=== PATIENT | male | born 1950 | race African-American/Black ===

== ENCOUNTER 2019-10-16 15:45 | Emergency (ER) | payer MEDICARE, OTHER ==
[~2019-10-16] VITALS: Ht 190.5 cm; Wt 66.7 kg
--- NOTE | 2019-10-16 15:45 | NUR ---
PT BIB RA 83 FROM HOME,C/O GENERALIZED WEAKNESS, PT IS AAOX4, NOT IN RESPIRATORY DISTRESS, HOOKED TO MONITOR, KEPT RESTED AND COMFORTABLE, WILL CONTINUE TO MONITOR.
--- NOTE | 2019-10-16 15:55 | NUR ---
IV LINE ESTABLISHED, BLOOD DRAWN AND SENT TO LAB.
--- NOTE | 2019-10-16 15:58 | NUR ---
BHARATH CABAN TUBER MACHINE OPERATOR AT BEDSIDE FOR EVAL.
[2019-10-16] MEDS ORDERED: IV NS 0.9% 1,000 ML BAG IV ONE ×2 (16:00→17:00)
--- NOTE | 2019-10-16 16:05 | NUR ---
URINAL GIVEN BUT UNABLE TO PROVIDE URINE SPECIMEN THIS TIME.
--- NOTE | 2019-10-16 16:06 | NUR ---
SEWING ROOM SUPERVISOR AT BEDSIDE FOR XRAY.
[2019-10-16 16:10] LABS: BASOPHILS % (AUTO) 0.4 % (0.0-2.0); EOSINOPHILS % (AUTO) 0.1 % (0.0-6.0); HEMATOCRIT 29 % (39-51); HEMOGLOBIN 9.7 g/dL (13.5-17.5); LYMPHOCYTES # (AUTO) 0.8 /CMM (0.8-4.8); LYMPHOCYTES % (AUTO) 7.6 % (20.0-44.0); MEAN CORPUSCULAR HGB CONC 33 g/dl (31.0-36.0); MEAN CORPUSCULAR VOLUME 102 fL (80-96); MONOCYTES # (AUTO) 0.3 /CMM (0.1-1.30); MONOCYTES % (AUTO) 2.7 % (2.0-12.0); NEUTROPHILS # (AUTO) 9.6 /CMM (1.8-8.9); NEUTROPHILS % (AUTO) 89.2 % (43.0-81.0); PLATELET COUNT (AUTO) 450 /CMM (150-450); RED BLOOD CELL COUNT(AUTO) 2.84 MIL/uL (4.5-6.0); WHITE BLOOD COUNT (AUTO) 10.8 K/uL (4.3-11.0)
[2019-10-16 16:20] LABS: CALCIUM, SERUM 8.8 mg/dL (8.5-10.1); CARBON DIOXIDE 37 mmol/L (21-32); CHLORIDE 96 mmol/L (98-107); CREATININE 1.7 mg/dL (0.6-1.3); GLUCOSE 142 mg/dL (74-106); POTASSIUM 3.2 mmol/L (3.5-5.1); SODIUM SERUM 140 mmol/L (136-145); UREA NITROGEN, BLOOD 32 mg/dL (7-18)
[2019-10-16 16:26] LABS: BILIRUBIN,TOTAL 2.9 mg/dL (0.2-1.0)
[2019-10-16 16:27] LABS: ALANINE AMINOTRANSFERASE 44 U/L (12-78); ALBUMIN 2.4 g/dL (3.4-5.0); ALKALINE PHOSPHATASE 115 U/L (46-116); ASPARTATE AMINOTRANSFERASE 177 U/L (15-37); BILIRUBIN,DIRECT 2.2 mg/dL (0.0-0.2); TOTAL PROTEIN, SERUM 7.2 g/dL (6.4-8.2)
[2019-10-16 17:10] LABS: APPEARANCE,URINE Cloudy (CLEAR); BILIRUBIN,URINE MODERATE (NEGATIVE); BLOOD, URINE Large Ery/uL (NEGATIVE); COLOR,URINE Yellow (YELLOW); KETONES,URINE Trace (NEGATIVE); LEUKOCYTE ESTERASE ,URINE Small (NEGATIVE); NITRITE, URINE Negative (NEGATIVE); PH,URINE 5.5 (5.0-8.0); PROTEIN,URINE 100 mg/dl (NEGATIVE); UGLUCOSE Negative (NEGATIVE)
--- NOTE | 2019-10-16 17:20 | NUR ---
MOVE SHEET TURNED IN TO ADMITTING
[2019-10-16 17:24] LABS: BACTERIA,URINE 2+ /HPF (None Seen); RBC,URINE 21-50 /HPF (0-2); SQUAMOUS EPITHELIAL CELL,UR Few /HPF (None Seen)
[2019-10-16] MEDS ORDERED: PIPERACILLIN /TAZOBACTAM 3.375 G in IV D5W 50 ML IV ONE (17:30)
--- NOTE | 2019-10-16 19:02 | NUR ---
MANFRED CASTRO [phone]
--- NOTE | 2019-10-16 19:14 | NUR ---
REPORT RECEIVED FROM JAY RN FOR INO
--- NOTE | 2019-10-16 19:16 | NUR ---
REPORT GIVEN TO CRISELDA TRAN FOR INO.
[2019-10-16 19:48] VITALS: BP 118/82
--- NOTE | 2019-10-16 20:07 | NUR ---
CALL FROM [facility]. PT ACCEPTED TO [facility] BED [id number] BY DR HENDRICKS. # FOR REPORT [phone]. [facility] ETA
--- NOTE | 2019-10-16 20:20 | NUR ---
REPORT GIVEN TO CRISELDA TATUM [facility]
--- NOTE | 2019-10-16 20:30 | NUR ---
PT REFUSED TO BE CHANGED
--- NOTE | 2019-10-16 20:55 | NUR ---
REPORT GIVEN TO [facility]. PT TRANSFERRED TO [facility] IN STABLE CONDITION
== END 2019-10-16 21:08 | disposition short-term general hospital (02) ==
LOC: ER 15:47
DX: A41.9 Sepsis, unspecified organism (principal); N39.0 Urinary tract infection, site not specified; Z98.890 Other specified postprocedural states; Z60.2 Problems related to living alone; Z85.118 Personal history of other malignant neoplasm of bronchus and lung
CPT/HCPCS: 36415; 71045; 80048; 80076; 81001; 83605 ×2; 84145; 84484; 85025; 85730; 87040 ×2; 87077 ×2; 87081; 87086; 87186 ×2; 87804 ×2; 93005; 96374; 99291; J2543; J7030 ×2; J7060; 81000-TC

== ENCOUNTER 2021-12-21 11:52 | Inpatient (IN) | payer OTHER ==
[~2021-12-21] VITALS: Ht 190.5 cm; Wt 65.8 kg
--- NOTE | 2021-12-21 12:06 | NUR ---
[id number], from home,found altered while sink faucet on, BS 40, D10 250ml infused. The patient is alert and oriented x1. In room air and denies SOB. Respiration regular and unlabored. Attached to the monitor. Warm blanket provided for comfort. Will continue to monitor the patient.
[2021-12-21] MEDS ORDERED: IV NS 0.9% 1,000 ML BAG IV ONE (12:30)
--- NOTE | 2021-12-21 12:31 | NUR ---
Per Dr. Rai 16 FR dickson catheter inserted per sterile protocal. Immediate output 30 ML of urine.
--- NOTE | 2021-12-21 12:32 | NUR ---
URINE COLLECTED AND SENT TO THE LAB
[2021-12-21 12:38] LABS: EOSINOPHILS % (AUTO) 0.2 % (0.0-6.0); HEMOGLOBIN 10.5 g/dL (13.5-17.5); LYMPHOCYTES # (AUTO) 0.8 K/uL (0.8-4.8); MONOCYTES # (AUTO) 0.3 K/uL (0.1-1.30); WHITE BLOOD COUNT (AUTO) 5.9 K/uL (4.3-11.0)
--- NOTE | 2021-12-21 12:44 | NUR ---
THE PATIENT IS TAKEN TO CT VIA RNEY
[2021-12-21 12:45] LABS: BASOPHILS % (AUTO) 0.4 % (0.0-2.0); HEMATOCRIT 32 % (39-51); LYMPHOCYTES % (AUTO) 13.7 % (20.0-44.0); MEAN CORPUSCULAR HGB CONC 33 g/dl (31.0-36.0); MEAN CORPUSCULAR VOLUME 113 fL (80-96); MONOCYTES % (AUTO) 5.1 % (2.0-12.0); NEUTROPHILS # (AUTO) 4.7 K/uL (1.8-8.9); NEUTROPHILS % (AUTO) 80.6 % (43.0-81.0); PLATELET COUNT (AUTO) 223 K/uL (150-450); RED BLOOD CELL COUNT(AUTO) 2.85 MIL/uL (4.5-6.0)
[2021-12-21 12:48] LABS: BILIRUBIN,URINE LARGE (NEGATIVE); COLOR,URINE DARK YELLOW (YELLOW); LEUKOCYTE ESTERASE ,URINE MODERATE (NEGATIVE); NITRITE, URINE POSITIVE (NEGATIVE); PROTEIN,URINE 100 mg/dl (NEGATIVE); UGLUCOSE NEGATIVE (NEGATIVE); UROBILINOGEN,URINE >=8.0 EU/dL (0.2)
[2021-12-21] MEDS ORDERED: PIPERACILLIN /TAZOBACTAM 3.375 G in IV D5W 50 ML IV ONE (13:00)
[2021-12-21] MEDS ORDERED: VANCOMYCIN HCL 1 GM in IV D5W 260 ML IV ONE (13:00)
--- NOTE | 2021-12-21 13:00 | NUR ---
WAITING FOR PHARMACY TO DELIVER ORDERED ANTIBIOTICS. FOLLOW UP CALL TO PHARMACY IS MADE.
--- NOTE | 2021-12-21 13:00 | NUR ---
THE PATIENT IS BACK FROM [place] VIA [facility]
[2021-12-21 13:13] LABS: BACTERIA,URINE Many /HPF (None Seen); SQUAMOUS EPITHELIAL CELL,UR None Seen /HPF (None Seen)
--- NOTE | 2021-12-21 13:23 | NUR ---
CALLED [facility] [phone] WILL FAX CLINICALS AND WILL CALL US BACK.
--- NOTE | 2021-12-21 13:31 | NUR ---
COVID ANTIGEN SWAB DONE AND SENT TO THE LAB
[2021-12-21] MEDS ORDERED: PHOS250T5 PO (13:37)
[2021-12-21] MEDS ORDERED: ONDA4TAB11 SL (13:37)
[2021-12-21] MEDS ORDERED: BRIM5DRO3 EACHEYE (13:37)
[2021-12-21] MEDS ORDERED: MULT400T12 PO (13:37)
[2021-12-21] MEDS ORDERED: CHOL100043 PO (13:37)
[2021-12-21] MEDS ORDERED: ACAM333T8 PO (13:37)
[2021-12-21] MEDS ORDERED: FOLI0.4T6 PO (13:37)
[2021-12-21] MEDS ORDERED: MIDO5TAB4 PO (13:37)
[2021-12-21] MEDS ORDERED: POTA20TA10 PO (13:37)
[2021-12-21] MEDS ORDERED: DORZ10DR13 EACHEYE (13:37)
[2021-12-21] MEDS ORDERED: LACT10SO3 PO (13:37)
[2021-12-21] MEDS ORDERED: FERR325T23 PO (13:37)
[2021-12-21] MEDS ORDERED: ALLO100T PO (13:37)
[2021-12-21] MEDS ORDERED: MAGN400T26 PO (13:37)
[2021-12-21] MEDS ORDERED: LATA2.5D15 EACHEYE (13:37)
[2021-12-21] MEDS ORDERED: THIA100T88 PO (13:37)
[2021-12-21] MEDS ORDERED: PANT40TA49 PO (13:37)
[2021-12-21] MEDS ORDERED: TAMS-12 PO (13:37)
[2021-12-21] MEDS ORDERED: QUET25TA PO (13:37)
--- NOTE | 2021-12-21 13:40 | NUR ---
DR. BENÍTEZ FROM [facility] SPEAKING WITH DR. RAUSCH.
[2021-12-21 13:52] LABS: ALANINE AMINOTRANSFERASE 32 U/L (12-78); ALKALINE PHOSPHATASE 94 U/L (46-116); ASPARTATE AMINOTRANSFERASE 158 U/L (15-37); BILIRUBIN,DIRECT 5.6 mg/dL (0.0-0.2); CALCIUM, SERUM 7.2 mg/dL (8.5-10.1); CARBON DIOXIDE 21 mmol/L (21-32); CHLORIDE 90 mmol/L (98-107); CREATININE 2.3 mg/dL (0.6-1.3); GLUCOSE 118 mg/dL (74-106); TOTAL PROTEIN, SERUM 6.9 g/dL (6.4-8.2); UREA NITROGEN, BLOOD 7 mg/dL (7-18)
[2021-12-21] MEDS ORDERED: IV NS 0.9% 500 ML BAG IV ONE (14:00)
[2021-12-21 14:17] LABS: POTASSIUM 1.6 mmol/L (3.5-5.1)
--- NOTE | 2021-12-21 14:20 | NUR ---
MOVE SHEET SUBMITTED AND CALLED FOR [facility] BED.
[2021-12-21 14:21] LABS: ACETAMINOPHEN < 10 ug/ml (10-30)
[2021-12-21] MEDS ORDERED: IV PREMIX D5 1/2NS + KCL 1,000 ML IV ONE ×2 (14:24→14:30)
[2021-12-21] MEDS ORDERED: POTASSIUM CHLORIDE 20 MEQ TAB.PRT.SR PO ONE ×2 (14:24→14:30)
[2021-12-21 14:26] LABS: ALBUMIN 1.8 g/dL (3.4-5.0); ALCOHOL, BLOOD < 3 mg/dL (0-0)
[2021-12-21 14:27] LABS: SODIUM SERUM 139 mmol/L (136-145)
--- NOTE | 2021-12-21 15:09 | NUR ---
[facility] CALLED ORGAN RECOVERY COORDINATOR PAGED.
[2021-12-21] MEDS ORDERED: LACTULOSE 10 G/15 ML UDC (PYXIS) NG ONE (16:30)
[2021-12-21] MEDS ORDERED: LACTULOSE 10 G/15 ML UDC (PYXIS) ONE (16:35)
--- NOTE | 2021-12-21 16:57 | NUR ---
INSERTED NG FR 16 LEFT NOSTILE AT 55.5 INCHES. PLACEMENT CONFIRMED BY 2 RN (CRISELDA OLMOS AND CRISELDA DESIR).
[2021-12-21] MEDS ORDERED: CEFTRIAXONE 1 G in IV D5W 50 ML IV SCH (18:00)
[2021-12-21] MEDS ORDERED: Z GUARD REMEDY 4 OZ OINT TP PRN (18:00)
[2021-12-21] MEDS ORDERED: ACETAMINOPHEN 325 MG TABLET PO PRN (18:00)
[2021-12-21] MEDS ORDERED: MAGNESIUM HYDROXIDE 30 ML UDC PO PRN (18:00)
[2021-12-21] MEDS ORDERED: MAG HYDROX/AL HYDROX/SIMETH 30 ML UDC PO PRN (18:00)
[2021-12-21] MEDS ORDERED: DEXTROSE 50%-WATER 50 ML DISP.SYRIN IV PRN (18:00)
[2021-12-21] MEDS ORDERED: ONDANSETRON HCL/PF 4 MG/2 ML VIAL IVP PRN (18:00)
[2021-12-21] MEDS ORDERED: LACTULOSE 10 G/15 ML UDC (PYXIS) PO SCH (18:00)
[2021-12-21] MEDS ORDERED: POTASSIUM CL. PREMIX PERIPHER. 50 ML IV SCH (18:00)
--- NOTE | 2021-12-21 18:05 | NUR ---
BED ASSIGNMENT 101 PER NURSING SUP.
--- NOTE | 2021-12-21 19:10 | NUR ---
STEP DOWN NURSE NOTE ADMIT 70 YEAR OLD MALE TO [facility] UNIT AT ROOM 101 ON [facility] MONITORING ADMITTING DIAGNOSIS IS ACUTE HEPATIC ENCEPHALOPATHY,HYPOKALEMIA 1.6 ALERT ORIENTED X1 VERBALLY RESPONSIVE ON ROOM AIR O2:94% IV SITE IS ON LEFT HAND 20G INTACT PATENT,BURRIS CATHETER IN PLACE URINE DARK YELLOW CLOUDY DRAINING BY GRAVITY SAFETY MEASURE IMPLEMENT BED IN LOW POSITION AND LOCKED BED ALARM IS GAS APPLIANCE INSTALLER LIGHT WITHIN REACH CONTINUE TO MONITOR.
--- NOTE | 2021-12-21 19:11 | NUR ---
THE PATIENT IS TRANSFERED TO ROOM 101 IN STABLE CONDITION AND PER ACLS POLICY.
[2021-12-21 19:22] LABS: CALCIUM, SERUM 6.7 mg/dL (8.5-10.1); CREATININE 2.3 mg/dL (0.6-1.3)
[2021-12-21 19:31] LABS: POTASSIUM 1.6 mmol/L (3.5-5.1)
[2021-12-21] MEDS: POTASSIUM CL. PREMIX PERIPHER. 50 ML IV SCH ×4 (19:34→22:56)
[2021-12-21] MEDS: IV D5/0.45 NACL 1,000 ML IV PRN (19:37)
[2021-12-21 20:00] VITALS: BP 95/54
[2021-12-21] MEDS: CEFTRIAXONE 1 G in IV D5W 50 ML IV SCH (20:18)
[2021-12-21] MEDS: LATANOPROST EYE DROP 0.005% 2.5 ML BOTTLE EACHEYE SCH (21:41)
[2021-12-21] MEDS: BLOOD SUGAR DIAGNOSTIC 1 EACH STRIP IN SCH (21:50)
[2021-12-21] MEDS: TAMSULOSIN 0.4 MG CAP.SR.24H PO SCH (21:50)
[2021-12-21] MEDS: QUETIAPINE FUMARATE 25 MG TABLET PO SCH (22:00)
[2021-12-21] MEDS: INSULIN REGULAR, HUMAN 100 UNIT/ML 3 ML VIAL SQ PRN (23:00)
[2021-12-22] VITALS: BP 98/54
--- NOTE | 2021-12-22 | NUR ---
RN NOTE 4 BAGS OF POTASSIUM 40MEQ GIVEN CONTINUE TO MONITOR
[2021-12-22] MEDS: LACTULOSE 10 G/15 ML UDC (PYXIS) PO SCH ×4 (00:04→17:05)
[2021-12-22 04:00] VITALS: BP 104/54
[2021-12-22 05:18] LABS: BASOPHILS % (AUTO) 0.3 % (0.0-2.0); EOSINOPHILS % (AUTO) 1.3 % (0.0-6.0); HEMATOCRIT 29 % (39-51); HEMOGLOBIN 10.1 g/dL (13.5-17.5); LYMPHOCYTES # (AUTO) 1.5 K/uL (0.8-4.8); LYMPHOCYTES % (AUTO) 14.8 % (20.0-44.0); MEAN CORPUSCULAR HGB CONC 34 g/dl (31.0-36.0); MEAN CORPUSCULAR VOLUME 108 fL (80-96); MONOCYTES # (AUTO) 0.5 K/uL (0.1-1.30); MONOCYTES % (AUTO) 5.3 % (2.0-12.0); NEUTROPHILS # (AUTO) 7.7 K/uL (1.8-8.9); NEUTROPHILS % (AUTO) 78.3 % (43.0-81.0); PLATELET COUNT (AUTO) 243 K/uL (150-450); RED BLOOD CELL COUNT(AUTO) 2.73 MIL/uL (4.5-6.0); WHITE BLOOD COUNT (AUTO) 9.9 K/uL (4.3-11.0)
[2021-12-22 05:40] LABS: CALCIUM, SERUM 7.2 mg/dL (8.5-10.1); CREATININE 2.1 mg/dL (0.6-1.3); MAGNESIUM 1.8 mg/dL (1.8-2.4)
[2021-12-22 05:56] LABS: PHOSPHORUS 0.5 mg/dL (2.5-4.9); POTASSIUM 1.5 mmol/L (3.5-5.1)
--- NOTE | 2021-12-22 06:00 | NUR ---
RN NOTE RECEIVED CRITICAL LAB POTASSIUM 1.5 MG 1.8 NOTIFIED BUFFET MANAGER ANCA ALVAREZ SHE ORDERED REPEAT POTASSIUM AND 1GM MG IV NOTED AND CARRIED OUT
[2021-12-22] MEDS ORDERED: Magnesium 1GM/D5W 100ML PREMIX PIGGYBACK IV ONE (06:30)
--- NOTE | 2021-12-22 07:04 | NUR ---
RN NOTE POTASSIUM RESULTS RECEIVED 1.[address] BOYER,ENDORSE MORNING SHIFT FOR FOLLOW UP
--- NOTE | 2021-12-22 07:16 | NUR ---
RN NOTE SERVICE TECHNICIAN COPIER ANCA CALLED BACK WITH NEW ORDER POTASSIUM 60MEQ ENDORSE FOR MORNING SHIFT
--- NOTE | 2021-12-22 07:27 | NUR ---
RN NOTE PATIENT REMAINS ON ALERT ORIENTED X1-2 VERBALLY RESPONSIVE NO SOB NOTED FOR CRITICAL LABS RESULTS ENDORSE MORNING SHIFT FOR FOLLOWING UP KEPT CLEAN AND DRY ALL THE TIME.HEAD OF THE BED ELEVATED/
--- NOTE | 2021-12-22 07:30 | NUR ---
RN OPENING NOTE RECEIVED PATIENT IN BED, AO X 2, IN NO S/SX OF ACUTE DISTRESS AT THIS TIME. ON ROOM AIR NO SHORTNESS OF BREATH NOTED. PATIENT HAS RIGHT AND LEFT HAND IV ACCESS AND ALL PATENT . LINE AND FLUSHING WELL, NO S/S OF INFECTION OR INFILTRATION. IV DEXTROZ AND HALF NS RUNNING AT 75 ML/HR. SAFETY MEASURES IMPLEMENTED. PATIENT BED ALARM IS ON. HEAD OF BED ELEVATED. BED IS LOCKED, IN LOWEST POSITION AND SIDE RAILS UP. CALL LIGHT WITHIN REACH OF THE PATIENT. WILL CONTINUE TO MONITOR AND REASSESS FOR ANY CHANGES.
[2021-12-22 08:00] VITALS: BP 104/64
[2021-12-22] MEDS ORDERED: POTASSIUM CHLORIDE 10 MEQ/50 ML PREMIXED IVPB FOR PERIPHERAL LINE IV ONE ×2 (08:00)
[2021-12-22] MEDS: BLOOD SUGAR DIAGNOSTIC 1 EACH STRIP IN SCH ×4 (08:14→22:00)
[2021-12-22] MEDS: INSULIN REGULAR, HUMAN 100 UNIT/ML 3 ML VIAL SQ PRN ×4 (08:17→22:08)
[2021-12-22] MEDS: FERROUS SULFATE (325 MG) 325 MG/TAB TABLET PO SCH ×2 (08:46→19:32)
[2021-12-22] MEDS: FOLIC ACID 1 MG TABLET PO SCH (08:47)
[2021-12-22] MEDS: PANTOPRAZOLE 40 MG TABLET.DR PO SCH ×2 (08:50→19:32)
[2021-12-22] MEDS: MULTIVITAMINS,THERAGRAN 1 UDTAB TABLET PO SCH (08:54)
[2021-12-22] MEDS: THIAMINE HCL 100 MG TABLET PO SCH (08:54)
[2021-12-22] MEDS: ALLOPURINOL 100 MG TABLET PO SCH (08:57)
[2021-12-22] MEDS: POTASSIUM CL. PREMIX PERIPHER. 50 ML IV SCH ×6 (08:57→17:07)
[2021-12-22] MEDS ORDERED: POTASSIUM CHLORIDE 20 MEQ POWDER PACKET GT SCH ×2 (09:00→13:00)
[2021-12-22 09:16] LABS: IRON, SERUM 66 ug/dl (50-175); TOTAL IRON BINDING CAPACITY 61 ug/dl (250-450)
[2021-12-22 09:52] LABS: FERRITIN 3269 ng/mL (8-388)
[2021-12-22] MEDS ORDERED: IBUPROFEN 200 MG TABLET PO PRN (10:00)
[2021-12-22] MEDS: IV D5/0.45 NACL 1,000 ML IV PRN (10:23)
[2021-12-22] MEDS: POTASSIUM CHLORIDE 20 MEQ TAB.PRT.SR PO SCH ×3 (10:33→20:33)
[2021-12-22] MEDS: TIMOLOL MAL/DORZOLAM HCL OPHTH 10 ML BOTTLE EACHEYE SCH ×2 (11:43→17:10)
[2021-12-22] MEDS: BRIMONIDINE TARTRATE OPHT SOLN 5 ML BOTTLE OP SCH ×2 (11:44→17:11)
[2021-12-22] MEDS: NEUTRA PHOS 1 POWD.PACKET PO SCH ×2 (11:49→19:29)
[2021-12-22] MEDS: MIDODRINE HCL (5MG) 5 MG TABLET PO SCH ×3 (11:49→17:08)
[2021-12-22 12:00] VITALS: BP 103/71
[2021-12-22 16:00] VITALS: BP 102/71
[2021-12-22] MEDS ORDERED: POTASSIUM CL. PREMIX PERIPHER. 50 ML IV SCH (17:00)
--- NOTE | 2021-12-22 19:00 | NUR ---
RN NOTE RECEIVED PATIENT IN BED RESTING ALERT ORIENTED X1-2 VERBALLY RESPONSIVE ON 3L OXYGEN VIA NASAL CANNULA O2:98% IV SITE IS ON LEFT AND RIGHT HAND INTACT PATENT,BURRIS CATHETER IN PLACE URINE BROWN AND CLOUDY DRAINING BY GRAVITY.SAFETY MEASURE IMPLEMENT BED IN LOW POSITION AND LOCKED,HEAD OF THE BED ELEVATED,CALL LIGHT WITHIN REACH CONTINUE TO MONITOR.
[2021-12-22] MEDS: NS 0.9% IV SCH (19:22)
[2021-12-22] MEDS: POTASSIUM CHLORIDE IV SCH (19:22)
[2021-12-22] MEDS: CEFTRIAXONE 1 G in IV D5W 50 ML IV SCH (19:35)
[2021-12-22 20:00] VITALS: BP 106/74
--- NOTE | 2021-12-22 20:55 | NUR ---
PATIENT POTASSIUM LEVEL IS 1.6 DOCTOR ORDERED 6 POTASSIUM 10MAQ IV PIGGYBAG AND EVEN PO POTASSIUM 20MAQ AND 40 MAQ. WILL CHECK AND CHANGE THE BAG EVERY HOUR.
--- NOTE | 2021-12-22 20:58 | NUR ---
RN CLOSING NOTES PATIENT AWAKE IN BED WITH PERIOD OF CONFUSION, VERBALLY RESPONSIVE. NOT IN DISTRESS NO COMPLAINTS OF PAIN NOTED. NC [address] BED TO LOWEST POSITION AND LOCKED. CALL LIGHT WITHIN REACH. WILL ENDORSE TO NIGHT NURSE ON DUTY.
[2021-12-22] MEDS: QUETIAPINE FUMARATE 25 MG TABLET PO SCH (22:00)
[2021-12-22] MEDS: LATANOPROST EYE DROP 0.005% 2.5 ML BOTTLE EACHEYE SCH (22:04)
[2021-12-22] MEDS: TAMSULOSIN 0.4 MG CAP.SR.24H PO SCH (22:04)
[2021-12-23] VITALS: BP 103/75
[2021-12-23] MEDS: LACTULOSE 10 G/15 ML UDC (PYXIS) PO SCH ×5 (00:08→23:17)
[2021-12-23] MEDS: K PHOS NEUTRAL 250 MG TABLET PO SCH ×2 (00:08→05:31)
--- NOTE | 2021-12-23 03:28 | NUR ---
RN NOTE PATIENT REMOVED HIS LEFT HAND IV LINE,EDUCATED HIM CONTINUE TO MONITOR.
[2021-12-23 04:00] VITALS: BP 112/76
[2021-12-23] MEDS: NS 0.9% IV SCH (05:10)
[2021-12-23] MEDS: POTASSIUM CHLORIDE IV SCH (05:10)
[2021-12-23 06:02] LABS: ALBUMIN 1.6 g/dL (3.4-5.0); BILIRUBIN,TOTAL 5.5 mg/dL (0.2-1.0); CREATININE 1.4 mg/dL (0.6-1.3); MAGNESIUM 2.1 mg/dL (1.8-2.4); TOTAL PROTEIN, SERUM 6.3 g/dL (6.4-8.2)
[2021-12-23 06:17] LABS: POTASSIUM 2.7 mmol/L (3.5-5.1)
[2021-12-23 06:18] LABS: PHOSPHORUS 0.6 mg/dL (2.5-4.9)
--- NOTE | 2021-12-23 06:50 | NUR ---
RN NOTE RECEIVED CRITICAL LAB RESULTS POTASSIUM 2.7 PHOSPHORUS 0.6 TROPONIN 702 CALLED RESEARCH EXECUTIVE ANCA ALVAREZ,SHE ORDERED EKG AND K PHOS BOLUS 15ML X2 NOTED AND CARRIED OUT WILL ENDORSE MORNING SHIFT FOR FOLLOW UP
[2021-12-23 06:54] LABS: BASOPHILS % (AUTO) 0.6 % (0.0-2.0); EOSINOPHILS % (AUTO) 2.3 % (0.0-6.0); HEMATOCRIT 28 % (39-51); HEMOGLOBIN 9.5 g/dL (13.5-17.5); LYMPHOCYTES # (AUTO) 1.2 K/uL (0.8-4.8); LYMPHOCYTES % (AUTO) 15.7 % (20.0-44.0); MEAN CORPUSCULAR HGB CONC 34 g/dl (31.0-36.0); MEAN CORPUSCULAR VOLUME 108 fL (80-96); MONOCYTES # (AUTO) 0.5 K/uL (0.1-1.30); MONOCYTES % (AUTO) 6.5 % (2.0-12.0); NEUTROPHILS # (AUTO) 5.8 K/uL (1.8-8.9); NEUTROPHILS % (AUTO) 74.9 % (43.0-81.0); PLATELET COUNT (AUTO) 204 K/uL (150-450); RED BLOOD CELL COUNT(AUTO) 2.59 MIL/uL (4.5-6.0); WHITE BLOOD COUNT (AUTO) 7.7 K/uL (4.3-11.0)
[2021-12-23] MEDS ORDERED: POTASSIUM PHOSPHATE MM 15 MMOL in IV NS 0.9% 250 ML IV SCH (07:00)
--- NOTE | 2021-12-23 07:12 | NUR ---
RN NOTE PATIENT REMAINS ON ALERT ORIENTEDX1 VERBALLY RESPONSIVE ON 3L OXYGEN O2:97% NO SOB NO PAIN AT THIS TIME,BURRIS CATHETER IN PLACE ON IV NS POTASSIUM 60MEQ 100CC/HR,EKG DONE WILL ENDORSE MORNING SHIFT FOR CONTINUATION OF CARE.
--- NOTE | 2021-12-23 07:30 | NUR ---
OPENING NOTE: REPORT RECEIVED FROM KAMI ABURTO. PT IS ALERT CONFUSED AT TIMES. PER REPORT PT PULLED OUT 2 IV SITES. PT APPEARS TO BE ALERT OX3, FORGETFUL AT TIMES. POTASSIUM AND PHOSPHERUS LABS ARE LOW THIS AM. ORDER RECEIVED FOR REPLACEMENT OF BOTH. PT CHECKED ON HOURLY AND PRN BY NURSING STAFF.
[2021-12-23] MEDS: POTASSIUM CHLORIDE 20 MEQ TAB.PRT.SR PO SCH ×6 (07:36→13:06)
[2021-12-23 08:00] VITALS: BP 115/76
--- NOTE | 2021-12-23 08:30 | NUR ---
PT PULLED OUT IV SITE AND TOOK OFF HOSPITAL ARM BAND. PT APPEARS TO BE CONFUSED. PT REORIENTED. NEW ARM BAND HAS BEEN ORDERED AND NEW IV SITE WILL BE PUT IN. PT PUT ON RESTRAINTS AT THIS TIME PER MD ORDERS.
[2021-12-23 08:53] LABS: EOSINOPHILS % (MANUAL) 1 % (0-4); LYMPHOCYTES % (MANUAL) 14 % (16-48); MONOCYTES % (MANUAL) 3 % (0-11.0); NEUTROPHILS % (MANUAL) 82 (42-76)
[2021-12-23] MEDS: BLOOD SUGAR DIAGNOSTIC 1 EACH STRIP IN SCH ×4 (09:45→22:16)
[2021-12-23] MEDS: TIMOLOL MAL/DORZOLAM HCL OPHTH 10 ML BOTTLE EACHEYE SCH ×2 (09:46→17:32)
[2021-12-23] MEDS: BRIMONIDINE TARTRATE OPHT SOLN 5 ML BOTTLE OP SCH ×2 (09:46→17:31)
[2021-12-23] MEDS: PANTOPRAZOLE 40 MG TABLET.DR PO SCH ×2 (09:47→17:30)
[2021-12-23] MEDS: MIDODRINE HCL (5MG) 5 MG TABLET PO SCH ×3 (09:47→17:31)
[2021-12-23] MEDS: FOLIC ACID 1 MG TABLET PO SCH (09:47)
[2021-12-23] MEDS: MULTIVITAMINS,THERAGRAN 1 UDTAB TABLET PO SCH (09:47)
[2021-12-23] MEDS: THIAMINE HCL 100 MG TABLET PO SCH (09:47)
[2021-12-23] MEDS: ALLOPURINOL 100 MG TABLET PO SCH (09:48)
[2021-12-23] MEDS: CARVEDILOL 3.125 MG TABLET PO SCH ×2 (09:48→20:03)
[2021-12-23] MEDS: ENSURE ENLIVE 237 ML LIQUID (VANILLA) PO SCH ×3 (09:49→17:32)
[2021-12-23] MEDS: ASPIRIN 81 MG TAB.CHEW PO SCH (09:56)
[2021-12-23] MEDS: POTASSIUM PHOSPHATE MM 7.5 MMOL in IV NS 0.9% 100 ML IV SCH ×4 (09:57→17:30)
[2021-12-23] MEDS: INSULIN REGULAR, HUMAN 100 UNIT/ML 3 ML VIAL SQ PRN ×4 (10:00→22:21)
[2021-12-23 12:00] VITALS: BP 106/78
--- NOTE | 2021-12-23 14:20 | NUR ---
RIGHT AC IV INFILTRATED AT 1415. NEW IV SITE IN LEFT FOREARM 22 GA ESTABLISHED. KPHOS RESTARTED IN NEW IV SITE. RIGHT AC SITE REMOVED WITHOUT DIFFICULTY, CATH TIP INTACT.
[2021-12-23 16:00] VITALS: BP 104/71
--- NOTE | 2021-12-23 18:19 | NUR ---
END OF SHIFT NOTE: PT RECEIVED 100 MEQ PO K-DUR PER MD ORDERS. BAG NUMBER 3 OF 4 INFUSING AT THIS TIME OF K-PHOS PER MD ORDERS. RECHECK OF POTASSIUM AND PHOSPHORUS IS DUE AT 1800. PT CHECKED ON HOURLY AND PRN BY NURSING STAFF.
--- NOTE | 2021-12-23 19:30 | NUR ---
RN OPENING NOTE RECEIVED PATIENT IN BED, AWAKE, VERBALLY RESPONSIVE, AO X 2, CONFUSED AT TIMES. PT ON O2 VIA NC AT 3LPM, SATING AT 100%. NO S/SX OF ACUTE DISTRESS AT THIS TIME. NO SHORTNESS OF BREATH NOTED. PT HAS LFA IV ACCESS, #22g, PATENT AND INTACT, FLUSHES WELL. NO S/S OF INFECTION OR INFILTRATION NOTED. PT WITH FC DRAINING WELL BY GRAVITY, WITH YELLOW COLORED URINE NOTED. ALL SAFETY MEASURES IN PLACE. BED IN LOWEST POSITION, LOCKED. BED ALARM ON. HEAD OF THE BED ELEVATED. CALL LIGHT WITHIN REACH OF THE PATIENT. WILL CONTINUE TO MONITOR AND REASSESS FOR ANY CHANGES.
[2021-12-23 20:00] VITALS: BP 102/73
--- NOTE | 2021-12-23 20:04 | NUR ---
RN NOTE WITHHELD COREG PER DOSE INSTRUCTION. PT'S SBP WAS 102. WILL CONTINUE TO MONITOR PT'S BP.
[2021-12-23] MEDS: CEFTRIAXONE 1 G in IV D5W 50 ML IV SCH (20:05)
[2021-12-23] MEDS: TAMSULOSIN 0.4 MG CAP.SR.24H PO SCH (21:57)
[2021-12-23] MEDS: POTASSIUM CHLORIDE 20 MEQ POWDER PACKET PO SCH ×2 (21:57→22:00)
[2021-12-23] MEDS: QUETIAPINE FUMARATE 25 MG TABLET PO SCH (21:57)
[2021-12-23] MEDS: LATANOPROST EYE DROP 0.005% 2.5 ML BOTTLE EACHEYE SCH (21:59)
[2021-12-24] VITALS: BP 109/81
[2021-12-24 04:00] VITALS: BP 118/85
[2021-12-24] MEDS: LACTULOSE 10 G/15 ML UDC (PYXIS) PO SCH ×3 (05:40→17:42)
[2021-12-24 06:49] LABS: BASOPHILS # (AUTO) 0.1 K/uL (0.0-0.2); BASOPHILS % (AUTO) 0.6 % (0.0-2.0); EOSINOPHILS % (AUTO) 1.4 % (0.0-6.0); HEMATOCRIT 26 % (39-51); HEMOGLOBIN 9.1 g/dL (13.5-17.5); LYMPHOCYTES # (AUTO) 1.4 K/uL (0.8-4.8); LYMPHOCYTES % (AUTO) 16.8 % (20.0-44.0); MEAN CORPUSCULAR HGB CONC 34 g/dl (31.0-36.0); MEAN CORPUSCULAR VOLUME 108 fL (80-96); MONOCYTES # (AUTO) 0.4 K/uL (0.1-1.30); MONOCYTES % (AUTO) 5.5 % (2.0-12.0); NEUTROPHILS # (AUTO) 6.2 K/uL (1.8-8.9); NEUTROPHILS % (AUTO) 75.7 % (43.0-81.0); PLATELET COUNT (AUTO) 202 K/uL (150-450); RED BLOOD CELL COUNT(AUTO) 2.44 MIL/uL (4.5-6.0); WHITE BLOOD COUNT (AUTO) 8.2 K/uL (4.3-11.0)
[2021-12-24 06:52] LABS: ALBUMIN 1.5 g/dL (3.4-5.0); BILIRUBIN,TOTAL 4.6 mg/dL (0.2-1.0); CALCIUM, SERUM 7.3 mg/dL (8.5-10.1); CREATININE 1.2 mg/dL (0.6-1.3); MAGNESIUM 1.9 mg/dL (1.8-2.4); POTASSIUM 3.4 mmol/L (3.5-5.1); TOTAL PROTEIN, SERUM 6.1 g/dL (6.4-8.2)
--- NOTE | 2021-12-24 07:02 | NUR ---
RN CLOSING NOTE NO SIGNIFICANT CHANGE THROUGHOUT THE SHIFT. ALL DUE MEDS GIVEN. ALL NEEDS ATTENDED TO. TURNED AND REPOSITIONED. KEPT CLEAN AND DRY. ALL SAFETY MEASURES IN PLACE. BED IN LOWEST POSITION, LOCKED. BED ALARM ON. HEAD OF THE BED ELEVATED. CALL LIGHT WITHIN REACH OF THE PATIENT. WILL ENDORSE TO AM SHIFT NURSE FOR INO.
[2021-12-24 07:04] LABS: PHOSPHORUS 0.8 mg/dL (2.5-4.9)
--- NOTE | 2021-12-24 07:35 | NUR ---
MARKETING PROGRAM MANAGER OPENING NOTES: RECEIVED PATIENT IN BED, AWAKE, VERBALLY RESPONSIVE, AO X 1-2, CONFUSED AT TIMES. PT ON O2 VIA NC AT 3LPM, SATING AT 98%. NO S/SX OF ACUTE DISTRESS AT THIS TIME. NO SHORTNESS OF BREATH NOTED. PT HAS LFA IV ACCESS, #22g, PATENT AND INTACT, FLUSHES WELL. PT WITH FC DRAINING WELL BY GRAVITY, WITH YELLOW COLORED URINE NOTED. ALL SAFETY MEASURES IN PLACE. BED IN LOWEST POSITION, LOCKED. BED ALARM ON. HEAD OF THE BED ELEVATED. CALL LIGHT WITHIN REACH OF THE PATIENT.
[2021-12-24 08:00] VITALS: BP 107/77
[2021-12-24] MEDS: BLOOD SUGAR DIAGNOSTIC 1 EACH STRIP IN SCH ×4 (08:02→21:28)
[2021-12-24] MEDS: BRIMONIDINE TARTRATE OPHT SOLN 5 ML BOTTLE OP SCH ×2 (08:03→17:04)
[2021-12-24] MEDS: ASPIRIN 81 MG TAB.CHEW PO SCH (08:03)
[2021-12-24] MEDS: TIMOLOL MAL/DORZOLAM HCL OPHTH 10 ML BOTTLE EACHEYE SCH ×2 (08:03→17:05)
[2021-12-24] MEDS: THIAMINE HCL 100 MG TABLET PO SCH (08:03)
[2021-12-24] MEDS: MULTIVITAMINS,THERAGRAN 1 UDTAB TABLET PO SCH (08:03)
[2021-12-24] MEDS: PANTOPRAZOLE 40 MG TABLET.DR PO SCH ×2 (08:04→17:05)
[2021-12-24] MEDS: ALLOPURINOL 100 MG TABLET PO SCH (08:04)
[2021-12-24] MEDS: FOLIC ACID 1 MG TABLET PO SCH (08:04)
[2021-12-24] MEDS: MIDODRINE HCL (5MG) 5 MG TABLET PO SCH ×3 (08:05→17:05)
[2021-12-24] MEDS: ENSURE ENLIVE 237 ML LIQUID (VANILLA) PO SCH ×3 (08:05→17:39)
--- NOTE | 2021-12-24 08:58 | NUR ---
Notifised to re; phos level was 0.8 and orders received and carried out
[2021-12-24] MEDS: CARVEDILOL 3.125 MG TABLET PO SCH ×2 (09:00→21:00)
[2021-12-24] MEDS ORDERED: POTASSIUM CHLORIDE 20 MEQ TAB.PRT.SR PO ONE (09:00)
[2021-12-24] MEDS: K PHOS NEUTRAL 250 MG TABLET PO SCH ×3 (09:53→17:42)
[2021-12-24 12:00] VITALS: BP 107/78
[2021-12-24] MEDS: INSULIN REGULAR, HUMAN 100 UNIT/ML 3 ML VIAL SQ PRN ×3 (12:25→21:35)
[2021-12-24 13:36] LABS: BAND % (MANUAL) 1 % (0.0-5.0); EOSINOPHILS % (MANUAL) 2 % (0-4); LYMPHOCYTES % (MANUAL) 23 % (16-48); MONOCYTES % (MANUAL) 3 % (0-11.0); NEUTROPHILS % (MANUAL) 71 (42-76)
[2021-12-24 16:00] VITALS: BP 113/78
[2021-12-24 18:38] LABS: PHOSPHORUS 1.2 mg/dL (2.5-4.9); POTASSIUM 3.6 mmol/L (3.5-5.1)
--- NOTE | 2021-12-24 19:10 | NUR ---
RN NOTE RECEIVED PATIENT IN BED, AO X 2, IN NO ACUTE DISTRESS AT THIS TIME. BREATHING EVEN AND UNLABORED, SATURATION AT 98% ON 3L VIA NC, SR ON THE MONITOR, HR IS 88. NOTED IV SITE AT LFA 22G, PATENT AND FLUSHING WELL, NO S/S OF INFECTION OR INFILTRATION. BURRIS CATHETER CONNECTED TO URINE BAG IN PLACE, DRAINING TO A CLEAR, YELLOW OUTPUT. SAFETY MEASURES IMPLEMENTED. PATIENT BED ALARM IS ON. HEAD OF BED ELEVATED. BED IS LOCKED, IN LOWEST POSITION AND SIDE RAILS UP. CALL LIGHT WITHIN REACH OF THE PATIENT. WILL CONTINUE TO MONITOR AND REASSESS FOR ANY CHANGES.
--- NOTE | 2021-12-24 19:32 | NUR ---
RN CLOSING NOTES: PT IN BED ASLEEP MOST OF THE TIME, AROUSABLE, ALERT X 1-2. ALL DUE MEDS GIVEN. ALL NEEDS ATTENDED TO. TURNED AND REPOSITIONED. KEPT CLEAN AND DRY. ALL SAFETY MEASURES IN PLACE. BED IN LOWEST POSITION, LOCKED. BED ALARM ON. HEAD OF THE BED ELEVATED. CALL LIGHT WITHIN REACH OF THE PATIENT. WILL ENDORSE TO INCOMING SHIFT NURSE FOR INO.INCOMING SHIFTAWARE OF DISCHARGE ORDER TO [facility] WHEN BED IS AVAILABLE
[2021-12-24 20:00] VITALS: BP 100/70
[2021-12-24] MEDS: CEFTRIAXONE 1 G in IV D5W 50 ML IV SCH (20:31)
[2021-12-24] MEDS: LATANOPROST EYE DROP 0.005% 2.5 ML BOTTLE EACHEYE SCH (21:22)
[2021-12-24] MEDS: QUETIAPINE FUMARATE 25 MG TABLET PO SCH (21:23)
[2021-12-24] MEDS: TAMSULOSIN 0.4 MG CAP.SR.24H PO SCH (21:23)
[2021-12-25] VITALS: BP 103/71
[2021-12-25] MEDS: LACTULOSE 10 G/15 ML UDC (PYXIS) PO SCH ×4 (00:26→17:43)
[2021-12-25] MEDS: K PHOS NEUTRAL 250 MG TABLET PO SCH ×4 (00:26→17:44)
[2021-12-25 04:00] VITALS: BP 104/70
--- NOTE | 2021-12-25 06:00 | NUR ---
RN NOTE PT AWAKE, APPEARS MORE ALERT. REMOVED RESTRAINTS AND REINSTRUCTED PATIENT NOT TO TRY TO GET UP BY HIMSELF TO WHICH HE AGREED. SAFETY MEASURES IN PLACE, BED ALARM ON, CALL LIGHT WITHIN REACH OF PATIENT. WILL CONT TO MONITOR
[2021-12-25 08:00] VITALS: BP 127/98
[2021-12-25] MEDS: MIDODRINE HCL (5MG) 5 MG TABLET PO SCH ×3 (09:00→17:45)
[2021-12-25] MEDS: MULTIVITAMINS,THERAGRAN 1 UDTAB TABLET PO SCH (10:00)
[2021-12-25] MEDS: FOLIC ACID 1 MG TABLET PO SCH (10:00)
[2021-12-25] MEDS: ASPIRIN 81 MG TAB.CHEW PO SCH (10:01)
[2021-12-25] MEDS: PANTOPRAZOLE 40 MG TABLET.DR PO SCH ×2 (10:01→17:44)
[2021-12-25] MEDS: ALLOPURINOL 100 MG TABLET PO SCH (10:01)
[2021-12-25] MEDS: CARVEDILOL 3.125 MG TABLET PO SCH ×3 (10:01→21:01)
[2021-12-25] MEDS: THIAMINE HCL 100 MG TABLET PO SCH (10:02)
[2021-12-25] MEDS: BRIMONIDINE TARTRATE OPHT SOLN 5 ML BOTTLE OP SCH ×2 (10:03→17:43)
[2021-12-25] MEDS: BLOOD SUGAR DIAGNOSTIC 1 EACH STRIP IN SCH ×4 (10:03→22:57)
[2021-12-25] MEDS: ENSURE ENLIVE 237 ML LIQUID (VANILLA) PO SCH ×3 (10:03→17:43)
[2021-12-25] MEDS: TIMOLOL MAL/DORZOLAM HCL OPHTH 10 ML BOTTLE EACHEYE SCH ×2 (10:04→17:42)
[2021-12-25 12:00] VITALS: BP 106/78
[2021-12-25 13:08] LABS: CALCIUM, SERUM 7.5 mg/dL (8.5-10.1); CREATININE 1.2 mg/dL (0.6-1.3); PHOSPHORUS 2.5 mg/dL (2.5-4.9); POTASSIUM 3.3 mmol/L (3.5-5.1)
[2021-12-25] MEDS: INSULIN REGULAR, HUMAN 100 UNIT/ML 3 ML VIAL SQ PRN ×2 (14:26→17:50)
[2021-12-25 16:00] VITALS: BP 92/64
--- NOTE | 2021-12-25 20:25 | NUR ---
RN NOTE UNIT MANAGER REPORTED LOW BLOOD PRESSURE, RECHECKED BP NOTED 84/54. NOTIFIED ANCA ALVAREZ ACCOUNTING MACHINE MECHANIC, RECEIVED NEW ORDERS FOR 500 NS BOLUS x1 TO BE INFUSED NOW, NOTED AND CARRIED OUT. WILL CONTINUE TO MONITOR PT CLOSELY.
[2021-12-25] MEDS ORDERED: IV NS 0.9% 500 ML IV ONE (20:30)
[2021-12-25] MEDS: CEFTRIAXONE 1 G in IV D5W 50 ML IV SCH (20:58)
[2021-12-25 21:00] VITALS: BP 85/55
[2021-12-25] MEDS: QUETIAPINE FUMARATE 25 MG TABLET PO SCH (22:00)
--- NOTE | 2021-12-25 22:00 | NUR ---
AUTOMOTIVE ENGINEER NOTE BP 92/62 IN [place] BUT IN LOWER LEGS, RT LEG 118/67 AND LEFT LEG 132/64, ANCA ALVAREZ STUDENT RECORDS COORDINATOR INFORMED NNO. WILL WAIT FOR [facility] TO CALL US BACK. DUE MEDS GIVEN.
[2021-12-25] MEDS: TAMSULOSIN 0.4 MG CAP.SR.24H PO SCH (22:46)
--- NOTE | 2021-12-25 22:47 | NUR ---
GAGGERMAN NOTE REPORT G[facility]EN [facility].
--- NOTE | 2021-12-25 23:25 | NUR ---
APPRAISAL MANAGER NOTE AMBULANCE FROM [facility] ARRIVED TO [facility] ARCHITECT THE PT. NO DISTRESS OR DISCOMFORT NOTED. VSS. F/C DC'D ORDERED. BELONGINGS GIVEN TO THE PT. ALL NEEDS ATTENDED. PT LEFT THE ROOM VIA GURNEY. IV SL INTACT AND PATENT PER [facility] NURSE REQUEST.
== END 2021-12-25 23:39 | disposition short-term general hospital (02) | DRG 432 ==
LOC: ER 11:59 → TELE-TD 18:23 → TELE1 12-22 21:04
DX: K70.40 Alcoholic hepatic failure without coma (principal); I21.4 Non-ST elevation (NSTEMI) myocardial infarction; N17.0 Acute kidney failure with tubular necrosis; E87.1 Hypo-osmolality and hyponatremia; N39.0 Urinary tract infection, site not specified; E46 Unspecified protein-calorie malnutrition; E87.2 Acidosis; Z85.118 Personal history of other malignant neoplasm of bronchus and lung; E11.65 Type 2 diabetes mellitus with hyperglycemia; E87.6 Hypokalemia; Z79.899 Other long term (current) drug therapy; Z20.822 Contact with and (suspected) exposure to COVID-19; K70.30 Alcoholic cirrhosis of liver without ascites; D53.9 Nutritional anemia, unspecified; E88.09 Other disorders of plasma-protein metabolism, not elsewhere classified; N18.9 Chronic kidney disease, unspecified; E86.1 Hypovolemia; D63.8 Anemia in other chronic diseases classified elsewhere; E83.39 Other disorders of phosphorus metabolism; F10.20 Alcohol dependence, uncomplicated; Y90.0 Blood alcohol level of less than 20 mg/100 ml; E11.22 Type 2 diabetes mellitus with diabetic chronic kidney disease; H54.61 Unqualified visual loss, right eye, normal vision left eye; Z74.09 Other reduced mobility
CPT/HCPCS: 36415; 70450-TC; 71045-TC; 76700-TC; 80048-TC; 80053-TC; 80076-TC; 81001; 82140-TC; 82728-TC; 82962-TC; 83540-TC; 83605-TC; 83735-TC; 84100-TC; 84132-TC; 84484-TC; 85025-TC; 87040-TC; 87081-TC; 87086-TC; 87186-TC; 93307-TC; C9803; G0378; G0480; J0696; J1815; J2543; J3475; J3480; J3490; J7030; J7040; J7050; J7060; U0003